=== PATIENT | female | born 1980 | race Hispanic/Latino ===

== ENCOUNTER 2018-06-10 12:58 | Emergency (ER) | payer BC, OTHER ==
[~2018-06-10] VITALS: Ht 160 cm; Wt 115.7 kg
[~2018-06-10 12:58] MED LIST: ATORVASTATIN CA20 MG PO; HYDROCHLOROTHIA25 MG PO; LOSARTAN POTASS25 MG PO; METFORMIN HCL500 MG PO; NOVOLIN N100 UNIT/1 SQ; TRAMADOL-ACETAMI1 EA PO
[2018-06-10] MEDS ORDERED: ONDANSETRON HCL INJ 2MG/ML 2ML 2 MG/ML VIAL IV STA (13:02)
[2018-06-10] MEDS ORDERED: PANTOPRAZOLE 40 MG 10ML VIAL IV STA (13:02)
[2018-06-10] MEDS ORDERED: MORPHINE SULFATE INJ 4 MG/ML INJ 1ML IV STA (13:02)
[2018-06-10] MEDS ORDERED: SODIUM CHLORIDE 0.9% 1000ML 1,000 ML IV STA (13:02)
[2018-06-10] MEDS ORDERED: DIATRIZOATE MEGL/DIATRIZOA SOD 30 ML BTL PO ONE (13:37)
[2018-06-10 13:44] LABS: BASOPHILS # (AUTO) 0.1 (0.0-0.1); BASOPHILS % 0.6 % (0.0-1.0); EOSINOPHILS # (AUTO) 0.5 (0.0-0.4); EOSINOPHILS % 4.7 % (0.0-6.0); HEMATOCRIT 31.9 % (34.2-44.1); HEMOGLOBIN 9.9 g/dL (12.0-16.0); LYMPHOCYTES % 29.8 % (18.0-39.1); MEAN CORPUSCULAR HEMOGLOBIN 23.4 pg (28-32); MEAN CORPUSCULAR VOLUME 75.4 fL (81-99); MONOCYTES # (AUTO) 0.6 (0.2-0.8); MONOCYTES % 5.9 % (4.4-11.3); NEUTROPHILS # (AUTO) 5.8 (2.1-6.9); NEUTROPHILS % 58.6 % (38.7-80.0); PLATELET COUNT 357 x10e3/uL (140-360); RED BLOOD COUNT 4.23 x10e6/uL (3.6-5.1); RED CELL DISTRIBUTION WIDTH 17.8 % (11.7-14.4)
[2018-06-10 13:51] LABS: BILIRUBIN,URINE NEGATIVE (NEGATIVE); CLARITY,URINE SL CLOUDY (CLEAR); COLOR,URINE YELLOW (YELLOW); KETONES,URINE NEGATIVE (NEGATIVE); LEUKOCYTE ESTERASE ,URINE NEGATIVE (NEGATIVE); NITRITE,URINE NEGATIVE (NEGATIVE); PREGNANCY TEST, URINE NEGATIVE (NEGATIVE); PROTEIN,URINE DIPSTICK 2+ (NEGATIVE); URINE UROBILINOGEN 0.2 mg/dL (0.2 - 1)
[2018-06-10 14:01] LABS: ALBUMIN 3.1 g/dL (3.5-5.0); ALBUMIN/GLOBULIN RATIO 0.7 (0.8-2.0); ANION GAP 10.8 mmol/L (8-16); CALCIUM 9.2 mg/dL (8.4-10.2); CREATININE, SERUM 1.09 mg/dL (0.57-1.11); POTASSIUM 3.8 mmol/L (3.5-5.1)
[2018-06-10 14:02] LABS: BACTERIA,URINE MANY /HPF; EPITHELIAL CELLS,URINE MANY /LPF; MUCUS,URINE MODERATE (RARE)
[2018-06-10] MEDS ORDERED: SODIUM CHLORIDE 0.9% 50ML 50 ML ONE (14:27)
[2018-06-10] MEDS ORDERED: IOPAMIDOL 370 MG/ML 200 ML INFUS..BTL INJ ONE (14:27)
--- NOTE | 2018-06-10 15:19 | Diagnostic Imaging Report ---
EXAMINATION: CT of the abdomen and pelvis with contrast. TECHNIQUE: Helical CT images of the abdomen and pelvis were performed from the lung bases to the lesser trochanters after the intravenous administration of 100 cc of Isovue 300 and the oral administration of Gastroview. Coronal and sagittal reformatted images were obtained.Dose modulation, iterative reconstruction, and/or weight based adjustment of the mA/kV was utilized to reduce the radiation dose to as low as reasonably achievable. COMPARISON: None. CLINICAL HISTORY:Abdominal pain DISCUSSION: ABDOMEN/PELVIS: LOWER THORAX:Unremarkable. HEPATOBILIARY: No focal hepatic lesions. No intra-or extrahepatic biliary ductal dilation. Cholecystectomy. SPLEEN: No splenomegaly. PANCREAS: No focal masses or ductal dilatation. ADRENALS: No adrenal nodules. KIDNEYS/URETERS: No hydronephrosis, stones, or solid mass lesions. PELVIC ORGANS/BLADDER: The bladder is normal. PERITONEUM/RETROPERITONEUM: No free air or fluid. LYMPH NODES: No intra-abdominal, retroperitoneal, pelvic or inguinal lymphadenopathy. VESSELS: The celiac trunk,superior and inferior mesenteric and bilateral renal arteries are patent The portal, superior mesenteric and splenic veins are patent. GI TRACT: No distention or wall thickening. BONES AND SOFT TISSUE: No bony destructive lesions. No soft tissue abnormalities. IMPRESSION: No acute CT finding. Signed by: Dr. De Ledesma M.D. on 06/10/2018 3:16 PM
[2018-06-10 16:57] VITALS: BP 150/77
== END 2018-06-10 17:05 | disposition home or self-care (01) ==
LOC: ER 12:58
DX: R10.12 Left upper quadrant pain (principal); R10.13 Epigastric pain; R11.2 Nausea with vomiting, unspecified; E11.9 Type 2 diabetes mellitus without complications
CPT/HCPCS: 36415; 74177; 80053; 81001; 81025; 83605; 83690; 85025; 87086; 99284; C9113; J2270; J2405; J7030; Q9967

== ENCOUNTER 2018-08-17 10:44 | Emergency (ER) | payer OTHER ==
[~2018-08-17] VITALS: Ht 160 cm; Wt 115.7 kg
--- OUTSIDE RECORDS SUMMARY | 2018-08-17 10:47 | XMS REPORT ---
Author [facility] Address Unknown Phone Unavailable Care Team Providers Care Professional Poker Player Name Role Phone Chaparro ANTONIO Unavailable Unavailable Payers Payer Name Policy Type Policy Number Effective Date Expiration Date Problems This patient has no known problems. Allergies, Adverse Reactions, Alerts Allergy Name Allergy Type Status Severity Reaction(s) Onset Date Inactive Date Treating Clinician Comments cephalexin DA Active U 2014-04-23 00:00:00 clindamycin DA Active MO 2014-04-23 00:00:00 simvastatin DA Active MO 2014-04-23 00:00:00 Cephalexin Monohydrate DA Active U 2012-11-08 00:00:00 Medications This patient has no known medications. Results Test Description Test Time Test Comments Text Results Atomic Results Result Comments - US TRANSVAGINAL NON OB 2018-07-25 14:33:00 Name: JEANNE KESSLER [facility] : 1980 Age/S: 37 / F [address] Unit #: [id number] Loc: [place] [address] Phys: Pam Cox MD Acct: [id number] Dis Date: Status: REG CLI PHONE #: [phone] Exam Date: 07/25/2018 1416 FAX #: [phone] Reason: EXAMS: CPT CODE: [id number] [place] [address] HISTORY: N 92.0. COMPARISON: None available. Transabdominal and transvaginal (for better endometrial and ovarian evaluation) pelvic ultrasound: Anteverted uterus measured 10.3 x 4.3 x 4.6 cm. Normal endometrial thickness of 7 mm. No IUP. Echogenicity and texture is normal. Small fibroid in the posterior uterine fundus measuring 1.1 cm towards the right. Visualized portions of the cervix are normal. Color Doppler flow in either ovary with normal spectral waveform. Right ovary measured 3 x 1.9 x 1.8 cm. Left ovary measured 2.4 x 1.6 x 1.7 cm with dominant follicle. No free fluid. IMPRESSION: Normal endometrium at 7 mm. Single fibroid in the posterior right uterine body measured 1.1 cm. No IUP. Normal ovaries with color Doppler flow. at 1433 Reported and signed by: Kelechi Crow M.D. CC: Pam Cox MD; Julio Walker MD Technologist: ROSARIO FISHER RT(R),[facility] Date/Time: 07/25/2018 (1433) [email or web address] Orig Print D/T: S: 07/25/2018 (1937) Probe: [id number] PAGE 1 Signed Report - US PELVIS COMPLETE 2018-07-25 14:33:00 Name: JEANNE KESSLER [facility] : 1980 Age/S: 37 / F [address] [facility] Unit #: [id number] Loc: [place] [address] Phys: Pam Cox MD Acct: [id number] Dis Date: Status: REG CLI PHONE #: [phone] Exam Date: 07/25/2018 1416 FAX #: [phone] Reason: N92.0 EXAMS: CPT CODE: [id number] US PELVIS COMPLETE 63859 HISTORY: N 92.0. COMPARISON: None available. Transabdominal and transvaginal (for better endometrial and ovarian evaluation) pelvic ultrasound: Anteverted uterus measured 10.3 x 4.3 x 4.6 cm. Normal endometrial thickness of 7 mm. No IUP. Echogenicity and texture is normal. Small fibroid in the posterior uterine fundus measuring 1.1 cm towards the right. Visualized portions of the cervix are normal. Color Doppler flow in either ovary with normal spectral waveform. Right ovary measured 3 x 1.9 x 1.8 cm. Left ovary measured 2.4 x 1.6 x 1.7 cm with dominant follicle. No free fluid. IMPRESSION: Normal endometrium at 7 mm. Single fibroid in the posterior right uterine body measured 1.1 cm. No IUP. Normal ovaries with color Doppler flow. at 1433 Reported and signed by: Kelechi Crow M.D. CC: Pam Cox MD; Julio Walker MD Technologist: ROSARIO FISHER RT(R[facility] Date/Time: 07/25/2018 (3594) [email or web address] Orig Print D/T: S: 07/25/2018 (1991) Probe: PAGE [address] ABDOMEN/PELVIS W 2018-06-10 15:12:00 [place] [address] Patient Name: JEANNE SANTANA V MR #: [id number] : 1980 Age/Sex: 37/F Req #: [id number] Adm Physician: Ordered by: LENA DANG APPLICATION PROCESSOR Report #: [id number] Location: ER Room/Bed: Procedure: [id number] CT/CT ABDOMEN/PELVIS W Exam Date: 06/10/18 Exam Time: 1430 REPORT STATUS: Signed EXAMINATION: CT of the abdomen and pelvis with con trast. TECHNIQUE: Helical CT images of the abdomen and pelvis were performed from the lung bases to the lesser trochanters after the intravenous administration of 100 cc of Isovue 300 and the oral administration of Gastroview. Coronal and sagittal reformatted images were obtained.Dose modulation, iterative reconstruction, and/or weight based adjustment of the mA/kV was utilized to reduce the radiation dose to as low as reasonably achievable. COMPARISON: None. CLINICAL HISTORY:Abdominal pain DISCUSSION: ABDOMEN/PELVIS: LOWER THORAX:Unremarkable. HEPATOBILIARY: No focal hepatic lesions. No intra-or extrahepatic biliary ductal dilation. Cholecystectomy. SPLEEN: No splenomegaly. PANCREAS: No focal masses or ductal dilatation. ADRENALS: No adrenal nodules. KIDNEYS/URETERS: No hydronephrosis, stones, or solid mass lesions. PELVIC ORGANS/BLADDER: The bladder is normal. PERITONEUM/RETROPERITONEUM: No free air or fluid. LYMPH NODES: No intra-abdominal, retroperitoneal, pelvic or inguinal lymphadenopathy. VESSELS: The celiac trunk,superior and inferior mesenteric and bilateral renal arteries are patent The portal, superior mesenteric and splenic veins are patent. GI TRACT: No distention or wall thickening. BONES AND SOFT TISSUE: No bony destructive lesions. No soft tissue abnormalities. IMPRESSION: No acute CT finding. Signed by: Dr. Ada Serna M.D. on 06/10/2018 3:16 PM Dictated By: ADA SERNA MD [id number] Transcribed By: PHYLICIA on 06/10/18 1926 COPY TO: LENA DANG NP
[2018-08-17] MEDS ORDERED: SODIUM CHLORIDE 0.9% 1000ML 1,000 ML IV STA (10:49)
[2018-08-17] MEDS ORDERED: ONDANSETRON HCL INJ 2MG/ML 2ML 2 MG/ML VIAL IV NR (11:00)
[2018-08-17] MEDS ORDERED: MORPHINE SULFATE INJ 4 MG/ML INJ 1ML IV NR (11:00)
[2018-08-17] MEDS ORDERED: DIATRIZOATE MEGL/DIATRIZOA SOD 30 ML BTL PO ONE (11:02)
[2018-08-17 11:25] LABS: BILIRUBIN,URINE NEGATIVE (NEGATIVE); CLARITY,URINE CLEAR (CLEAR); COLOR,URINE YELLOW (YELLOW); KETONES,URINE NEGATIVE (NEGATIVE); LEUKOCYTE ESTERASE ,URINE NEGATIVE (NEGATIVE); NITRITE,URINE NEGATIVE (NEGATIVE); URINE UROBILINOGEN 0.2 mg/dL (0.2 - 1)
[2018-08-17 11:26] LABS: PROTEIN,URINE DIPSTICK 3+ (NEGATIVE)
[2018-08-17 11:26] LABS: BASOPHILS # (AUTO) 0.1 (0.0-0.1); BASOPHILS % 0.6 % (0.0-1.0); EOSINOPHILS # (AUTO) 0.2 (0.0-0.4); EOSINOPHILS % 1.8 % (0.0-6.0); HEMATOCRIT 36.2 % (34.2-44.1); HEMOGLOBIN 12.2 g/dL (12.0-16.0); LYMPHOCYTES # (AUTO) 1.8 (1.0-3.2); LYMPHOCYTES % 20.5 % (18.0-39.1); MEAN CORPUSCULAR HEMOGLOBIN 27.7 pg (28-32); MEAN CORPUSCULAR HGB CONC 33.7 g/dL (31-35); MEAN CORPUSCULAR VOLUME 82.3 fL (81-99); MONOCYTES # (AUTO) 0.8 (0.2-0.8); MONOCYTES % 8.6 % (4.4-11.3); NEUTROPHILS # (AUTO) 6.1 (2.1-6.9); NEUTROPHILS % 68.2 % (38.7-80.0); PLATELET COUNT 232 x10e3/uL (140-360)
[2018-08-17 11:35] LABS: WBC,URINE (MAN) 0-5 /HPF (0-5)
[2018-08-17 11:36] LABS: EPITHELIAL CELLS,URINE RARE /LPF; MUCUS,URINE FEW (RARE)
[2018-08-17 11:45] LABS: ALANINE AMINOTRANSFERASE 22 IU/L (0-55); ALBUMIN 3.3 g/dL (3.5-5.0); ALBUMIN/GLOBULIN RATIO 0.8 (0.8-2.0); ALKALINE PHOSPHATASE 79 IU/L (40-150); AMYLASE 51 U/L (25-125); ANION GAP 14.6 mmol/L (8-16); BLOOD UREA NITROGEN 14 mg/dL (7-26); BUN/CREATININE RATIO 14 (6-25); CALCIUM 9.3 mg/dL (8.4-10.2); CARBON DIOXIDE 25 mmol/L (22-29); CHLORIDE 104 mmol/L (98-107); CREATININE, SERUM 1.03 mg/dL (0.57-1.11); EST GLOMERULAR FILTRATION RATE 60 ML/MIN (60-); GLUCOSE 142 mg/dL (74-118); LIPASE 43 U/L (8-78); POTASSIUM 4.6 mmol/L (3.5-5.1); SODIUM 139 mmol/L (136-145)
--- NOTE | 2018-08-17 13:43 | Diagnostic Imaging Report ---
EXAMINATION: CT of the abdomen and pelvis with contrast. TECHNIQUE: Helical CT images of the abdomen and pelvis were performed from the lung bases to the lesser trochanters after the intravenous administration of 100 cc of Isovue 300 and the oral administration of Gastroview. Coronal and sagittal reformatted images were obtained.Dose modulation, iterative reconstruction, and/or weight based adjustment of the mA/kV was utilized to reduce the radiation dose to as low as reasonably achievable. COMPARISON: CT abdomen/pelvis with contrast 06/10/2018. CLINICAL HISTORY:Left-sided abdominal pain. FINDINGS: LOWER THORAX:Unremarkable. HEPATOBILIARY: Diffuse mild hepatic steatosis. No focal hepatic lesions. No evidence of biliary ductal dilatation. Status post cholecystectomy. SPLEEN: No splenomegaly. PANCREAS: No focal masses or ductal dilatation. ADRENALS: No adrenal nodules. KIDNEYS/URETERS: No hydronephrosis, stones, or solid mass lesions. PELVIC ORGANS/BLADDER: The bladder is normal. PERITONEUM/RETROPERITONEUM: No free air or fluid. LYMPH NODES: No evidence of lymphadenopathy. VESSELS: There are scattered atherosclerotic calcifications in the aorta and branch vessels. GI TRACT: No distention or wall thickening. Normal appendix. BONES AND SOFT TISSUE: No bony destructive lesions. No soft tissue abnormalities. IMPRESSION: Diffuse mild hepatic steatosis. Signed by: Dr. Addy Mcbride MD on 08/17/2018 1:40 PM
[2018-08-17 14:09] VITALS: BP 153/85
[2018-08-17] MEDS ORDERED: SODIUM CHLORIDE 0.9% 50ML 50 ML ONE (16:27)
[2018-08-17] MEDS ORDERED: IOPAMIDOL 370 MG/ML 200 ML INFUS..BTL INJ ONE (16:28)
== END 2018-08-17 14:10 | disposition home or self-care (01) ==
LOC: ER 10:44
DX: R10.32 Left lower quadrant pain (principal); I10 Essential (primary) hypertension; E11.9 Type 2 diabetes mellitus without complications; E78.5 Hyperlipidemia, unspecified; F41.9 Anxiety disorder, unspecified; F32.9 Major depressive disorder, single episode, unspecified
CPT/HCPCS: 36415; 74177; 80053; 81001; 82150; 83690; 84702; 85025; 99284; J2270; J2405; J7030; Q9967